=== PATIENT | female | born 1980 | race Hispanic/Latino ===

== ENCOUNTER 2016-11-26 | Emergency (ER) | payer SELFPAY ==
[2016-11-26 00:31] VITALS: BP 107/70
[2016-11-26 00:55] LABS: Bacteria,Urine 1+ /HPF (Negative); Bilirubin,Urine NEG (Negative); Blood,Urine NEG (Negative); Ketones,Urine NEG (Negative); Leukocyte Esterase,Urine NEG (Negative); Mucus,Urine FEW /HPF; Nitrite,Urine NEG (Negative); Protein,Urine <15 mg/dL mg/dL (Negative)
--- NOTE | 2016-11-26 05:37 | Emergency Department Report ---
ED General Adult HPI - General Chief complaint: Wound/Laceration Stated complaint: CUTS TO ARM Time Seen by Provider: 11/26/16 04:46 Source: patient, family Mode of arrival: Ambulatory Limitations: No Limitations - History of Present Illness Initial comments: Patient reports that she cut right forearm and left forearm and broken glass today. She said it was accidental. Denies any bleeding at present. She said this happened this morning. Patient also complains of cold symptoms were runny nose and congestion and also complaining in a few urinary frequency. Denies any increased thirst or hunger. Denies any fever or chills. She reports that she has some abdominal cramping but she is not having any cramping now this happen this morning denies any vaginal bleeding or discharge. Last menstrual period was 11/26/2016 denies any fever or chills. Patient shows she is having lower back pain and she said she has back pain from where she had injured her back in the past. Patient has been here several visits for multiple issues to include pain management. She said she got her tetanus vaccination less than 5 years ago. Denies any numbness or tingling to extremities. Denies any loss of bowel or bladder function. Denies any urinary burning. Patient denies injuries to her arms was self-inflicted MD Complaint: multiple complaintsmultiple complaints Onset/Timin -: days(s) Location: back, abdomen, left, right, upper extremity Radiation: non-radiation Severity scale (0 -10): 9 Quality: aching Consistency: intermittent Improves with: rest Worsens with: movement Associated Symptoms: other (all symptoms and urinary frequency, back pain, cut forearms). denies: confusion, chest pain, cough, diaphoresis, fever/chills, headaches, loss of appetite, malaise, nausea/vomiting, rash, seizure, shortness of breath, syncope, weakness Treatments Prior to Arrival: none - Related Data Home Medications Medication Instructions Recorded Confirmed Last Taken Carisoprodol [Soma] 350 mg PO PRN PRN 08/27/13 05/06/14 01/04/14 ALPRAZolam [Xanax TAB] 1 mg PO BID PRN 01/05/14 05/06/14 01/04/14 Previous Rx's Medication Instructions Recorded Last Taken Type HYDROcodone/APAP 10-325 [[place] 1 each PO Q6HR PRN #20 tablet 08/27/13 04/29/14 Rx 10-325 mg TAB] Ferrous Sulfate [Feosol 325 MG tab] 325 mg PO BID #30 tablet 05/07/14 Unknown Rx Multivitamin [Animal Shapes] 1 each PO DAILY #30 tab.chew 05/07/14 Unknown Rx oxyCODONE /ACETAMINOPHEN [Percocet 1 tab PO Q6HR PRN #30 tablet 05/07/14 Unknown Rx 5/325] Acetaminophen/Codeine [Tylenol #3] 1 tab PO Q6H PRN #15 tab 03/31/15 Unknown Rx Sulfamethoxazole/Trimethoprim 1 each PO BID #14 tablet 03/31/15 Unknown Rx [Bactrim DS TAB] Cephalexin [Keflex] 500 mg PO Q8HR #15 cap 11/26/16 Unknown Rx Ibuprofen [Advil 100 MG tab] 600 mg PO Q6H PRN #12 tablet 11/26/16 Unknown Rx Allergies Allergy/AdvReac Type Severity Reaction Status Date / Time No Known Allergies Allergy Verified 01/05/14 22:35 ED Review of Systems ROS: Stated complaint: CUTS TO ARM Other details as noted in HPI Comment: All other systems reviewed and negative Constitutional: no symptoms reported Eyes: denies: eye pain ENT: congestion. denies: ear pain, throat pain, dental pain Respiratory: no symptoms reported Cardiovascular: denies: chest pain, palpitations, edema, syncope Endocrine: increased urine. denies: excessive sweating, flushing, intolerance to cold, intolerance to heat, increased hunger, increased thirst, unexplained weight gain, unexplained weight loss Gastrointestinal: abdominal pain (this morning but none now). denies: nausea, vomiting, diarrhea, constipation, hematemesis, melena, hematochezia Genitourinary: frequency. denies: urgency, dysuria, hematuria, discharge, abnormal menses, dyspareunia Musculoskeletal: back pain, arthralgia. denies: joint swelling, myalgia Skin: other (cut forearms) Neurological: denies: headache, weakness, numbness, paresthesias, confusion, abnormal gait, vertigo ED Past Medical Hx - Past Medical History Previous Medical History?: Yes Hx Hypertension: No Hx Congestive Heart Failure: No Hx Diabetes: No Hx Deep Vein Thrombosis: No Hx Renal Disease: No Hx Sickle Cell Disease: No Hx Seizures: No (migranes) Hx Kidney Stones: Yes Hx Psychiatric Treatment: Yes (ANXIETY) Hx Asthma: No Hx COPD: No Hx HIV: No - Surgical History Past Surgical History?: Yes Hx Cholecystectomy: Yes Additional Surgical History: - Family History Family history: no significant - Social History Smoking Status: Current Every Day Smoker Substance Use Type: None Other Social History: She says she is and lives with her family - Medications Home Medications: Home Medications Medication Instructions Recorded Confirmed Last Taken Type Carisoprodol [Soma] 350 mg PO PRN PRN 08/27/13 05/06/14 01/04/14 History HYDROcodone/APAP 10-325 [[place] 1 each PO Q6HR PRN #20 tablet 08/27/13 05/06/14 04/29/14 Rx 10-325 mg TAB] ALPRAZolam [Xanax TAB] 1 mg PO BID PRN 01/05/14 05/06/14 01/04/14 History Ferrous Sulfate [Feosol 325 MG tab] 325 mg PO BID #30 tablet 05/07/14 Unknown Rx Multivitamin [Animal Shapes] 1 each PO DAILY #30 tab.chew 05/07/14 Unknown Rx oxyCODONE /ACETAMINOPHEN [Percocet 1 tab PO Q6HR PRN #30 tablet 05/07/14 Unknown Rx 5/325] Acetaminophen/Codeine [Tylenol #3] 1 tab PO Q6H PRN #15 tab 03/31/15 Unknown Rx Sulfamethoxazole/Trimethoprim 1 each PO BID #14 tablet 03/31/15 Unknown Rx [Bactrim DS TAB] Cephalexin [Keflex] 500 mg PO Q8HR #15 cap 11/26/16 Unknown Rx Ibuprofen [Advil 100 MG tab] 600 mg PO Q6H PRN #12 tablet 11/26/16 Unknown Rx ED Physical Exam - General Limitations: No Limitations General appearance: in no apparent distress - Head Head exam: Present: atraumatic, normocephalic, normal inspection - Eye Eye exam: Present: normal appearance, PERRL, EOMI - ENT ENT exam: Present: normal exam, normal orophraynx, mucous membranes moist, TM's normal bilaterally, normal external ear exam - Respiratory Respiratory exam: Present: normal lung sounds bilaterally. Absent: respiratory distress, wheezes, rales, rhonchi, stridor, chest wall tenderness - Skin Skin exam: Present: warm, dry, normal color, erythema, other ( patient with superficial scratches to RFA and 1 scratch to lfa) ED Course Vital Signs 11/26/16 00:25 Temperature 99.1 F Pulse Rate 91 H Respiratory 18 Rate Blood Pressure 107/70 O2 Sat by Pulse 96 Oximetry - Reevaluation(s) Reevaluation #1: 11/26/16 06:00 Patient potassium was mildly decreased and she was repleted with potassium 40 mEq and instructed to eat more bananas to keep her potassium levels up. She was given [place] 5/325 2 tablets in emergency room for pain which she said her pain is better. Reevaluation #2: 11/26/16 06:57 Given the 5/325 2 tablets by mouth in emergency room for complaining of pain to lower back. Scratch erik to wound on forearms cleansed with saline and neosporin ointment placed the site. KDUR 40 mEq in emergency room for mild hypokalemia. Urine was showing that she has greater than 500 glucose in her urine and is here for urinary frequency but she says she does not have Diabetes. Pedis the glucose 96 and glucose from chemistry is 94. ED Medical Decision Making - Lab Data Result diagrams: 11/26/16 05:57 11/26/16 05:57 Lab Results 11/26/16 11/26/16 11/26/16 Range/Units 00:35 05:57 05:57 WBC 8.4 (4.5-11.0) K/mm3 RBC 4.02 (3.65-5.03) M/mm3 Hgb 11.6 (10.1-14.3) gm/dl Hct 34.4 (30.3-42.9) % MCV 86 (79-97) fl MCH 29 (28-32) pg MCHC 34 (30-34) % RDW 13.1 L (13.2-15.2) % Plt Count 156 (140-440) K/mm3 Lymph % (Auto) 34.2 (13.4-35.0) % [place] % (Auto) 8.7 H (0.0-7.3) % Eos % (Auto) 0.8 (0.0-4.3) % Baso % (Auto) 0.5 (0.0-1.8) % Lymph # 2.9 (1.2-5.4) K/mm3 [place] # 0.7 (0.0-0.8) K/mm3 Eos # 0.1 (0.0-0.4) K/mm3 Baso # 0.0 (0.0-0.1) K/mm3 Seg Neutrophils % 55.8 (40.0-70.0) % Seg Neutrophils # 4.7 (1.8-7.7) K/mm3 Sodium 138 (137-145) mmol/L Potassium 3.4 L (3.6-5.0) mmol/L Chloride 102.4 (98-107) mmol/L Carbon Dioxide 23 (22-30) mmol/L Anion Gap 16 mmol/L BUN 12 (7-17) mg/dL Creatinine 0.5 L (0.7-1.2) mg/dL Estimated GFR > 60 ml/min BUN/Creatinine Ratio 24.00 % Glucose 94 (65-100) mg/dL Calcium 8.7 (8.4-10.2) mg/dL Total Bilirubin < 0.20 (0.1-1.2) mg/dL Direct Bilirubin < 0.2 (0-0.2) mg/dL Indirect Bilirubin 0.0 mg/dL AST 8 (5-40) units/L ALT 7 (7-56) units/L Alkaline Phosphatase 66 (35-129) units/L Total Protein 5.9 L (6.3-8.2) g/dL Albumin 3.7 L (3.9-5) g/dL Albumin/Globulin Ratio 1.7 % Urine Color (Yellow) Urine Turbidity (Clear) Urine pH (5.0-7.0) Ur Specific [place] (1.003-1.030) Urine Protein (Negative) mg/dL Urine Glucose (UA) (Negative) mg/dL Urine Ketones (Negative) mg/dL Urine Blood (Negative) Urine Nitrite (Negative) Urine Bilirubin (Negative) Urine Urobilinogen (<2.0) mg/dL Ur Leukocyte Esterase (Negative) Urine WBC (Auto) (0.0-6.0) /HPF Urine RBC (Auto) (0.0-6.0) /HPF U Epithel Cells (Auto) (0-13.0) /HPF Urine Bacteria (Auto) (Negative) /HPF Urine Mucus /HPF Urine HCG, Qual Negative (Negative) 09/05/17 Range/Units Unknown WBC (4.5-11.0) K/mm3 RBC (3.65-5.03) M/mm3 Hgb (10.1-14.3) gm/dl Hct (30.3-42.9) % MCV (79-97) fl MCH (28-32) pg MCHC (30-34) % RDW (13.2-15.2) % Plt Count (140-440) K/mm3 Lymph % (Auto) (13.4-35.0) % [place] % (Auto) (0.0-7.3) % Eos % (Auto) (0.0-4.3) % Baso % (Auto) (0.0-1.8) % Lymph # (1.2-5.4) K/mm3 [place] # (0.0-0.8) K/mm3 Eos # (0.0-0.4) K/mm3 Baso # (0.0-0.1) K/mm3 Seg Neutrophils % (40.0-70.0) % Seg Neutrophils # (1.8-7.7) K/mm3 Sodium (137-145) mmol/L Potassium (3.6-5.0) mmol/L Chloride (98-107) mmol/L Carbon Dioxide (22-30) mmol/L Anion Gap mmol/L BUN (7-17) mg/dL Creatinine (0.7-1.2) mg/dL Estimated GFR ml/min BUN/Creatinine Ratio % Glucose (65-100) mg/dL Calcium (8.4-10.2) mg/dL Total Bilirubin (0.1-1.2) mg/dL Direct Bilirubin (0-0.2) mg/dL Indirect Bilirubin mg/dL AST (5-40) units/L ALT (7-56) units/L Alkaline Phosphatase (35-129) units/L Total Protein (6.3-8.2) g/dL Albumin (3.9-5) g/dL Albumin/Globulin Ratio % Urine Color Yellow (Yellow) Urine Turbidity Clear (Clear) Urine pH 5.0 (5.0-7.0) Ur Specific [place] 1.029 (1.003-1.030) Urine Protein <15 mg/dl (Negative) mg/dL Urine Glucose (UA) >=500 (Negative) mg/dL Urine Ketones Neg (Negative) mg/dL Urine Blood Neg (Negative) Urine Nitrite Neg (Negative) Urine Bilirubin Neg (Negative) Urine Urobilinogen 2.0 (<2.0) mg/dL Ur Leukocyte Esterase Neg (Negative) Urine WBC (Auto) 1.0 (0.0-6.0) /HPF Urine RBC (Auto) 1.0 (0.0-6.0) /HPF U Epithel Cells (Auto) < 1.0 (0-13.0) /HPF Urine Bacteria (Auto) 1+ (Negative) /HPF Urine Mucus Few /HPF Urine HCG, Qual (Negative) - Medical Decision Making ED Course ED course: She presented emergency room with her family member with complaints of urinary frequency, exacerbation of chronic back pain and she said that she accidentally cut her forearms on broken glass. Tetanus vaccine booster 0.5 mL updated. Patient and found to have superficial scratches to right forearm and one scratch erik to left forearm. Her neurological and back exam is normal. Patient able to ambulate in the hallway without any difficulties. She was given [place] 5/325 mg 2 tablets emergency room for pain which relieved her pain. Bilateral forearm scratches cleansed with normal saline and Neosporin ointment placed the fight. Urinalysis negative for urinary tract infection but she had greater than 500 glucose in her urine and less than 15% protein. H&P OC fingerstick 96 and chemistry with glucose of 94. She had mild hypokalemia and was given K-Dur 40 mEq in emergency room and was told to increase her potassium in her diet.CBC stable. Discharged home with prescription for keflex for scratch clay and motrin for pain. Patient does not have a primary care doctor so I told her that she needs to follow up at [facility] for primary care visit. She was understands discharge diagnosis and treatment plan discharge home with her family in stable condition Critical care attestation.: If time is entered above; I have spent that time in minutes in the direct care of this critically ill patient, excluding procedure time. ED Disposition Clinical Impression: Acute exacerbation of chronic low back pain, Hypokalemia Scratch of forearm Qualifiers: Encounter type: initial encounter Laterality: unspecified laterality Qualified Code(s): S50.819A - Abrasion of unspecified forearm, initial encounter Disposition: DC-01 TO HOME OR SELFCARE Is pt being admited?: No Condition: Critical Instructions: Hypokalemia (ED), Abrasion (ED), Back Pain (ED) Additional Instructions: Follow-up at [facility] for further evaluation and treatment of multiple problems. You are already on medication at home for pain so you can continue to take these These keep affected areas both forearms clean and dry Take antibiotic as prescribed Prescriptions: Cephalexin [Keflex] 500 mg PO Q8HR #15 cap Ibuprofen [Advil 100 MG tab] 600 mg PO Q6H PRN #12 tablet PRN Reason: Pain Referrals: [facility] [Outside] - 2-3 Days Forms: Accompanied Note
[2016-11-26] MEDS ORDERED: NORCO 5/325 PO ONE (05:39)
[2016-11-26] MEDS ORDERED: TRIPLE ANTIBIOTIC TP ONE (05:39)
[2016-11-26 06:12] LABS: Basophils % (Auto) 0.5 % (0.0-1.8); Eosinophils % (Auto) 0.8 % (0.0-4.3); Hematocrit 34.4 % (30.3-42.9); Hemoglobin 11.6 gm/dl (10.1-14.3); Mean Corpuscular HGB Conc 34 % (30-34); Mean Corpuscular Hemoglobin 29 pg (28-32); Mean Corpuscular Volume 86 fl (79-97); Platelet Count 156 K/mm3 (140-440); Red Blood Count 4.02 M/mm3 (3.65-5.03); Red Cell Distribution Width 13.1 % (13.2-15.2); White Blood Count 8.4 K/mm3 (4.5-11.0)
[2016-11-26 06:40] LABS: Alanine Aminotransferase 7 units/L (7-56); Albumin 3.7 g/dL (3.9-5); Albumin/Globulin Ratio 1.7 %; Alkaline Phosphatase 66 units/L (35-129); Anion Gap 16 mmol/L; Bilirubin,Total < 0.20 mg/dL (0.1-1.2); Blood Urea Nitrogen 12 mg/dL (7-17); Calcium 8.7 mg/dL (8.4-10.2); Carbon Dioxide 23 mmol/L (22-30); Chloride 102.4 mmol/L (98-107); Glucose 94 mg/dL (65-100); Potassium 3.4 mmol/L (3.6-5.0); Sodium 138 mmol/L (137-145); Total Protein 5.9 g/dL (6.3-8.2)
[2016-11-26 06:41] LABS: Bilirubin,Direct < 0.2 mg/dL (0-0.2)
[2016-11-26] MEDS ORDERED: K-DUR PO ONE (06:48)
[2016-11-26] MEDS ORDERED: ZITHROMAX ONE (07:29)
== END 2016-11-26 07:19 | disposition home or self-care (01) ==
LOC: ED
DX: G89.29 Other chronic pain (principal); M54.5 Low back pain; E87.6 Hypokalemia; S50.812A Abrasion of left forearm, initial encounter; S50.811A Abrasion of right forearm, initial encounter; F17.210 Nicotine dependence, cigarettes, uncomplicated; W25.XXXA Contact with sharp glass, initial encounter; Y93.89 Activity, other specified; Y92.89 Other specified places as the place of occurrence of the external cause; Y99.8 Other external cause status
CPT/HCPCS: 36415; 80048; 80074; 81001; 81025; 82962; 85025; 99283; A6250

== ENCOUNTER 2017-09-26 09:08 | Emergency (ER) | payer SELFPAY ==
[2017-09-26 09:16] VITALS: BP 181/99
[2017-09-26] MEDS ORDERED: ZOFRAN IV ONE (10:06)
[2017-09-26] MEDS ORDERED: TORADOL IV ONE (10:06)
[2017-09-26] MEDS ORDERED: PEPCID IV ONE (10:06)
[2017-09-26] MEDS ORDERED: BENTYL IM ONE (10:06)
--- NOTE | 2017-09-26 10:08 | Emergency Department Report ---
Blank Doc - Documentation Documentation: Patient is a 37-year-old female who is presenting with 1 week of nausea vomiting. Patient also states she has some epigastric discomfort as well. Patient states the pain is a 10 out of 10 in severity. Patient has a history of pancreatitis and states this feels similar. Patient denies any fevers chills cough cold congestion at this time. Patient is coming in requesting IV pain meds. On brief physical exam the patient has some mild epigastric tenderness on palpation but no rebound or guarding. The patient is mildly tachycardic. Patient will be sent to the treatment room to check labs to rule out electrolyte abnormalities also received IV fluids administered symptomatic relief.
[2017-09-26 10:09] LABS: Bacteria,Urine 4+ /HPF (Negative); Bilirubin,Urine NEG (Negative); Blood,Urine LG (Negative); Color,Urine Amber (Yellow); Mucus,Urine 3+ /HPF
[2017-09-26 10:11] LABS: HCG Qualitative,Urine Negative (Negative)
[2017-09-26 10:26] LABS: Basophils % (Auto) 0.3 % (0.0-1.8); Eosinophils # (Auto) 0.1 K/mm3 (0.0-0.4); Eosinophils % (Auto) 1.1 % (0.0-4.3); Hematocrit 45.7 % (30.3-42.9); Hemoglobin 15.3 gm/dl (10.1-14.3); Lymphocytes # (Auto) 3.1 K/mm3 (1.2-5.4); Lymphocytes % (Auto) 34.9 % (13.4-35.0); Mean Corpuscular HGB Conc 34 % (30-34); Mean Corpuscular Hemoglobin 27 pg (28-32); Mean Corpuscular Volume 81 fl (79-97); Monocytes # (Auto) 0.7 K/mm3 (0.0-0.8); Monocytes % (Auto) 8.1 % (0.0-7.3); Platelet Count 279 K/mm3 (140-440); Red Blood Count 5.68 M/mm3 (3.65-5.03); Red Cell Distribution Width 13.8 % (13.2-15.2)
[2017-09-26 10:47] LABS: Alanine Aminotransferase 32 units/L (7-56); Albumin 4.3 g/dL (3.9-5); BUN/Creatinine Ratio 19; Blood Urea Nitrogen 13 mg/dL (7-17); Calcium 9.7 mg/dL (8.4-10.2); Hemolysis Index 9; Lipase 29 units/L (13-60)
[2017-09-26] MEDS ORDERED: KCL 10MEQ/100ML 10 MEQ/100 ML BAG IV ONE ×2 (10:55→11:21)
[2017-09-26] MEDS ORDERED: K-DUR PO ONE ×2 (10:55→11:21)
[2017-09-26] MEDS ORDERED: NACL 0.9% 1000 ML 1,000 ML IV ONE ×2 (11:20→11:21)
[2017-09-26] MEDS ORDERED: NACL 0.9% 250ML 250 ML ONE (11:21)
[2017-09-26] MEDS ORDERED: NACL 0.9% 1000 ML 1,000 ML ONE (11:22)
--- NOTE | 2017-09-26 11:47 | Emergency Department Report ---
ED N/V/D HPI - General Chief complaint: Abdominal Pain Stated complaint: NAUSEA/VOMITING Time Seen by Provider: 09/26/17 10:02 Source: patient Mode of arrival: Ambulatory Limitations: No Limitations - History of Present Illness Initial comments: Patient is a 37-year-old female who is presenting with 1 week of nausea vomiting. Patient also states she has some epigastric discomfort as well. Patient states the pain is a 10 out of 10 in severity. Patient has a history of pancreatitis and states this feels similar. Patient denies any fevers chills cough cold congestion at this time. Patient is coming in requesting IV pain meds. Location: epigastric Pain Scale: 8 Quality: cramping Consistency: constant - Related Data Home Medications Medication Instructions Recorded Confirmed Last Taken Carisoprodol [Soma] 350 mg PO PRN PRN 08/27/13 05/06/14 01/04/14 ALPRAZolam [Xanax TAB] 1 mg PO BID PRN 01/05/14 05/06/14 01/04/14 Previous Rx's Medication Instructions Recorded Last Taken Type HYDROcodone/APAP 10-325 [[place] 1 each PO Q6HR PRN #20 tablet 08/27/13 04/29/14 Rx 10-325 mg TAB] Ferrous Sulfate [Feosol 325 MG tab] 325 mg PO BID #30 tablet 05/07/14 Unknown Rx Multivitamin [Animal Shapes] 1 each PO DAILY #30 tab.chew 05/07/14 Unknown Rx oxyCODONE /ACETAMINOPHEN [Percocet 1 tab PO Q6HR PRN #30 tablet 05/07/14 Unknown Rx 5/325] Acetaminophen/Codeine [Tylenol #3] 1 tab PO Q6H PRN #15 tab 03/31/15 Unknown Rx Sulfamethoxazole/Trimethoprim 1 each PO BID #14 tablet 03/31/15 Unknown Rx [Bactrim DS TAB] Cephalexin [Keflex] 500 mg PO Q8HR #15 cap 11/26/16 Unknown Rx Ibuprofen [Advil 100 MG tab] 600 mg PO Q6H PRN #12 tablet 11/26/16 Unknown Rx Dicyclomine [Bentyl] 10 mg PO QID #15 capsule 09/26/17 Unknown Rx Nitrofurantoin Monohyd/M-Cryst 100 mg PO BID #14 capsule 09/26/17 Unknown Rx [Macrobid 100 mg Capsule] Ondansetron [Zofran Odt] 4 mg PO Q8HR PRN #10 tab.rapdis 09/26/17 Unknown Rx Potassium Chloride [K-Dur] 10 meq PO QDAY #7 tablet 09/26/17 Unknown Rx Allergies Allergy/AdvReac Type Severity Reaction Status Date / Time No Known Allergies Allergy Verified 09/26/17 09:13 ED Review of Systems ROS: Stated complaint: NAUSEA/VOMITING Other details as noted in HPI Comment: All other systems reviewed and negative ED Past Medical Hx - Past Medical History Previous Medical History?: Yes Hx Hypertension: No Hx Congestive Heart Failure: No Hx Diabetes: No Hx Deep Vein Thrombosis: No Hx Renal Disease: No Hx Sickle Cell Disease: No Hx Seizures: No (migranes) Hx Kidney Stones: Yes Hx Psychiatric Treatment: Yes (ANXIETY) Hx Asthma: No Hx COPD: No Hx HIV: No Additional medical history: PANCREAS - Surgical History Hx Cholecystectomy: Yes Additional Surgical History: / - Social History Smoking Status: Current Every Day Smoker Substance Use Type: Alcohol, Marijuana - Medications Home Medications: Home Medications Medication Instructions Recorded Confirmed Last Taken Type Carisoprodol [Soma] 350 mg PO PRN PRN 08/27/13 05/06/14 01/04/14 History HYDROcodone/APAP 10-325 [[place] 1 each PO Q6HR PRN #20 tablet 08/27/13 05/06/14 04/29/14 Rx 10-325 mg TAB] ALPRAZolam [Xanax TAB] 1 mg PO BID PRN 01/05/14 05/06/14 01/04/14 History Ferrous Sulfate [Feosol 325 MG tab] 325 mg PO BID #30 tablet 05/07/14 Unknown Rx Multivitamin [Animal Shapes] 1 each PO DAILY #30 tab.chew 05/07/14 Unknown Rx oxyCODONE /ACETAMINOPHEN [Percocet 1 tab PO Q6HR PRN #30 tablet 05/07/14 Unknown Rx 5/325] Acetaminophen/Codeine [Tylenol #3] 1 tab PO Q6H PRN #15 tab 03/31/15 Unknown Rx Sulfamethoxazole/Trimethoprim 1 each PO BID #14 tablet 03/31/15 Unknown Rx [Bactrim DS TAB] Cephalexin [Keflex] 500 mg PO Q8HR #15 cap 11/26/16 Unknown Rx Ibuprofen [Advil 100 MG tab] 600 mg PO Q6H PRN #12 tablet 11/26/16 Unknown Rx Dicyclomine [Bentyl] 10 mg PO QID #15 capsule 09/26/17 Unknown Rx Nitrofurantoin Monohyd/M-Cryst 100 mg PO BID #14 capsule 09/26/17 Unknown Rx [Macrobid 100 mg Capsule] Ondansetron [Zofran Odt] 4 mg PO Q8HR PRN #10 tab.rapdis 09/26/17 Unknown Rx Potassium Chloride [K-Dur] 10 meq PO QDAY #7 tablet 09/26/17 Unknown Rx ED Physical Exam - General Limitations: No Limitations General appearance: alert, in no apparent distress - Head Head exam: Present: atraumatic, normocephalic - Eye Eye exam: Present: normal appearance - ENT ENT exam: Present: mucous membranes moist, other (poor dentition) - Neck Neck exam: Present: normal inspection - Respiratory Respiratory exam: Present: normal lung sounds bilaterally. Absent: respiratory distress - Cardiovascular Cardiovascular Exam: Present: regular rate, normal rhythm. Absent: systolic murmur, diastolic murmur, rubs, gallop - GI/Abdominal GI/Abdominal exam: Present: soft, tenderness (mild tenderness to the epigastrium ), normal bowel sounds. Absent: distended, guarding, rebound, rigid - Extremities Exam Extremities exam: Present: normal inspection - Back Exam Back exam: Present: normal inspection - Neurological Exam Neurological exam: Present: alert, oriented X3 - Psychiatric Psychiatric exam: Present: normal affect, normal mood - Skin Skin exam: Present: warm, dry, intact, normal color. Absent: rash ED Course Vital Signs 09/26/17 09/26/17 09:14 11:00 Temperature 97.8 F Pulse Rate 115 H Respiratory 18 16 Rate Blood Pressure 181/99 O2 Sat by Pulse 100 Oximetry ED Medical Decision Making - Lab Data Result diagrams: 09/26/17 10:15 09/26/17 10:15 Lab Results 09/26/17 09/26/17 09/26/17 Range/Units 09:41 10:15 10:15 WBC 8.8 (4.5-11.0) K/mm3 RBC 5.68 H (3.65-5.03) M/mm3 Hgb 15.3 H (10.1-14.3) gm/dl Hct 45.7 H (30.3-42.9) % MCV 81 (79-97) fl MCH 27 L (28-32) pg MCHC 34 (30-34) % RDW 13.8 (13.2-15.2) % Plt Count 279 (140-440) K/mm3 Lymph % (Auto) 34.9 (13.4-35.0) % [place] % (Auto) 8.1 H (0.0-7.3) % Eos % (Auto) 1.1 (0.0-4.3) % Baso % (Auto) 0.3 (0.0-1.8) % Lymph # 3.1 (1.2-5.4) K/mm3 [place] # 0.7 (0.0-0.8) K/mm3 Eos # 0.1 (0.0-0.4) K/mm3 Baso # 0.0 (0.0-0.1) K/mm3 Seg Neutrophils % 55.6 (40.0-70.0) % Seg Neutrophils # 4.9 (1.8-7.7) K/mm3 Sodium 137 (137-145) mmol/L Potassium 2.8 L* (3.6-5.0) mmol/L Chloride 92.5 L (98-107) mmol/L Carbon Dioxide 29 (22-30) mmol/L Anion Gap 18 mmol/L BUN 13 (7-17) mg/dL Creatinine 0.7 (0.7-1.2) mg/dL Estimated GFR > 60 ml/min BUN/Creatinine Ratio 19 % Glucose 111 H (65-100) mg/dL Calcium 9.7 (8.4-10.2) mg/dL Total Bilirubin 0.60 (0.1-1.2) mg/dL AST 24 (5-40) units/L ALT 32 (7-56) units/L Alkaline Phosphatase 96 (35-129) units/L Total Protein 7.5 (6.3-8.2) g/dL Albumin 4.3 (3.9-5) g/dL Albumin/Globulin Ratio 1.3 % Lipase 29 (13-60) units/L Urine Color [place] (Yellow) Urine Turbidity Clear (Clear) Urine pH 6.0 (5.0-7.0) Ur Specific [place] 1.020 (1.003-1.030) Urine Protein 100 mg/dl (Negative) mg/dL Urine Glucose (UA) Neg (Negative) mg/dL Urine Ketones Neg (Negative) mg/dL Urine Blood Lg (Negative) Urine Nitrite Pos (Negative) Urine Bilirubin Neg (Negative) Urine Urobilinogen 4.0 (<2.0) mg/dL Ur Leukocyte Esterase Lg (Negative) Urine WBC (Auto) 24.0 H (0.0-6.0) /HPF Urine RBC (Auto) 10.0 (0.0-6.0) /HPF U Epithel Cells (Auto) 24.0 H (0-13.0) /HPF Urine Bacteria (Auto) 4+ (Negative) /HPF Urine Mucus 3+ /HPF Urine HCG, Qual Negative (Negative) - Medical Decision Making Patient is a 37-year-old female is presenting with nausea vomiting epigastric discomfort. Patient's laboratory studies all within normal limits except for low potassium. Patient also has mild urinary tract infection as well. Patient very adamant that she receive narcotics IV and not by mouth. Patient was given multiple medications Effexor treat her problems including Pepcid IV Zofran and IV fluids. Her potassium was also replaced. Patient refused oral potassium. The patient also states that she plans on not taking the antibiotics by mouth as well. Patient is not actively vomited here in emergency department. Patient's while the IV fluids and IV potassium for a few as a stated that "I can go home and being in pain". Patient is exhibiting drug- seeking behavior. Patient will sign out AGAINST MEDICAL ADVICE so she is not receiving the totality of the treatment has been offered. Critical care attestation.: If time is entered above; I have spent that time in minutes in the direct care of this critically ill patient, excluding procedure time. ED Disposition Clinical Impression: Hypokalemia, Abdominal pain in female patient Gastritis Qualifiers: Gastritis type: superficial Chronicity: acute Gastritis bleeding: without bleeding Qualified Code(s): K29.00 - Acute gastritis without bleeding UTI (urinary tract infection) Qualifiers: Urinary tract infection type: acute cystitis Disposition: LEFT AGAINST MED ADVICE Is pt being admited?: No Does the pt Need Aspirin: No Condition: Stable Instructions: Abdominal Pain (ED) Referrals: PRIMARY CARE, [Primary Care Provider] - 3-5 Days
== END 2017-09-26 11:57 | disposition left against medical advice (07) ==
LOC: ED 09:08
DX: K29.00 Acute gastritis without bleeding (principal); N30.00 Acute cystitis without hematuria; E87.6 Hypokalemia; F41.9 Anxiety disorder, unspecified; F17.200 Nicotine dependence, unspecified, uncomplicated; F12.90 Cannabis use, unspecified, uncomplicated; Z90.49 Acquired absence of other specified parts of digestive tract
CPT/HCPCS: 36415; 80053; 81001; 81025; 83690; 85025; 96365; 96372; 96375; 99283; J0500; J1885; J2405; J3480; J7030; J7050

== ENCOUNTER 2020-06-09 22:21 | Emergency (ER) | payer SELFPAY ==
[2020-06-09] MEDS ORDERED: levETIRAcetam 1000 MG/NS 0.75% 1,000 MG/100 ML BAG IV ONE (22:41)
--- NOTE | 2020-06-09 22:42 | Emergency Department Report ---
ED Seizure HPI - General Stated Complaint: POSSIBLE SEIZURE Time Seen by Provider: 06/09/20 22:38 Source: patient, EMS Mode of arrival: Stretcher Limitations: No Limitations - History of Present Illness Initial Comments: Patient is a 40-year-old female presents emergency room with complaints of seizure activity. Patient is at her local rehab facility, [facility] for Xanax detox. Patient states she has had a seizure for a while. Patient states she went to the bathroom and the light was flickering which pushed her into a seizure. Patient states that she can feel her seizure coming on. Patient states she is feeling much better. Patient states she is feeling a little bit tired. Patient states she is not sure if she hit her head. Patient denies any pain. Patient states she has a history of epileptic seizures for which she is taking medications for and she is compliant with her medications. Patient denies recent travel. Patient denies recent international travel. Patient denies exposure to the novel coronavirus. Patient denies sick contacts. Patient denies fever and chills. Patient denies cough. Patient denies diarrhea. Patient denies coming in contact with anybody with symptoms of the novel coronavirus. MD Complaint: seizure -: Sudden Description of Episode: loss of consciousness, tonic-clonic movement -: second(s) Witnessed:: Yes Trauma: No Seizure History: known seizure disorder, compliant with medication Place: other Possible Precipitating Event: other (Flashing lights) Associated Symptoms: confusion, malaise. denies: chest pain, cough, diaphoresis, fever/chills, loss of appetite, rash, shortness of breath, syncope, weakness, tongue injury, shoulder dislocation Treatments Prior to Arrival: none - Related Data Home Medications Medication Instructions Recorded Confirmed Last Taken carisoprodoL [Soma] 350 mg PO PRN PRN 08/27/13 05/06/14 01/04/14 ALPRAZolam [Xanax TAB] 1 mg PO BID PRN 01/05/14 05/06/14 01/04/14 Previous Rx's Medication Instructions Recorded Last Taken Type HYDROcodone/APAP 10-325 [[place] 1 each PO Q6HR PRN #20 tablet 08/27/13 04/29/14 Rx 10-325 mg TAB] Ferrous Sulfate [Feosol 325 MG tab] 325 mg PO BID #30 tablet 05/07/14 Unknown Rx Pediatric Multivitamin No.17 1 each PO DAILY #30 tab.chew 05/07/14 Unknown Rx [Animal Shapes] oxyCODONE /ACETAMINOPHEN [Percocet 1 tab PO Q6HR PRN #30 tablet 05/07/14 Unknown Rx 5/325] Acetaminophen/Codeine [Tylenol #3] 1 tab PO Q6H PRN #15 tab 03/31/15 Unknown Rx Sulfamethoxazole/Trimethoprim 1 each PO BID #14 tablet 03/31/15 Unknown Rx [Bactrim DS TAB] Ibuprofen [Advil 100 MG tab] 600 mg PO Q6H PRN #12 tablet 11/26/16 Unknown Rx cephALEXin [Keflex] 500 mg PO Q8HR #15 cap 11/26/16 Unknown Rx Dicyclomine [Bentyl] 10 mg PO QID #15 capsule 09/26/17 Unknown Rx Nitrofurantoin Monohyd/M-Cryst 100 mg PO BID #14 capsule 09/26/17 Unknown Rx [Macrobid 100 mg Capsule] Ondansetron [Zofran Odt] 4 mg PO Q8HR PRN #10 tab.rapdis 09/26/17 Unknown Rx Potassium Chloride [K-Dur] 10 meq PO QDAY #7 tablet 09/26/17 Unknown Rx Allergies Allergy/AdvReac Type Severity Reaction Status Date / Time No Known Allergies Allergy Verified 09/26/17 09:13 ED Review of Systems ROS: Stated complaint: POSSIBLE SEIZURE Other details as noted in HPI Constitutional: see HPI, malaise. denies: chills, fever Eyes: denies: eye pain, eye discharge, vision change ENT: denies: ear pain, throat pain Respiratory: denies: cough, shortness of breath, wheezing Cardiovascular: denies: chest pain, palpitations Endocrine: no symptoms reported Gastrointestinal: denies: abdominal pain, nausea, diarrhea Genitourinary: denies: urgency, dysuria, discharge Musculoskeletal: denies: back pain, joint swelling, arthralgia Skin: denies: rash, lesions Neurological: as per HPI. denies: headache, weakness, paresthesias Psychiatric: denies: anxiety, depression Hematological/Lymphatic: denies: easy bleeding, easy bruising ED Past Medical Hx - Past Medical History Previous Medical History?: Yes Hx Hypertension: No Hx Congestive Heart Failure: No Hx Diabetes: No Hx Deep Vein Thrombosis: No Hx Renal Disease: No Hx Sickle Cell Disease: No Hx Seizures: No (migranes) Hx Kidney Stones: Yes Hx Psychiatric Treatment: Yes (ANXIETY) Hx Asthma: No Hx COPD: No Hx HIV: No Additional medical history: PANCREAS - Surgical History Past Surgical History?: Yes Hx Cholecystectomy: Yes Additional Surgical History: / - Family History Family history: no significant - Social History Smoking Status: Current Every Day Smoker Substance Use Type: Alcohol, Marijuana - Medications Home Medications: Home Medications Medication Instructions Recorded Confirmed Last Taken Type HYDROcodone/APAP 10-325 [[place] 1 each PO Q6HR PRN #20 tablet 08/27/13 05/06/14 04/29/14 Rx 10-325 mg TAB] carisoprodoL [Soma] 350 mg PO PRN PRN 08/27/13 05/06/14 01/04/14 History ALPRAZolam [Xanax TAB] 1 mg PO BID PRN 01/05/14 05/06/14 01/04/14 History Ferrous Sulfate [Feosol 325 MG tab] 325 mg PO BID #30 tablet 05/07/14 Unknown Rx Pediatric Multivitamin No.17 1 each PO DAILY #30 tab.chew 05/07/14 Unknown Rx [Animal Shapes] oxyCODONE /ACETAMINOPHEN [Percocet 1 tab PO Q6HR PRN #30 tablet 05/07/14 Unknown Rx 5/325] Acetaminophen/Codeine [Tylenol #3] 1 tab PO Q6H PRN #15 tab 03/31/15 Unknown Rx Sulfamethoxazole/Trimethoprim 1 each PO BID #14 tablet 03/31/15 Unknown Rx [Bactrim DS TAB] Ibuprofen [Advil 100 MG tab] 600 mg PO Q6H PRN #12 tablet 11/26/16 Unknown Rx cephALEXin [Keflex] 500 mg PO Q8HR #15 cap 11/26/16 Unknown Rx Dicyclomine [Bentyl] 10 mg PO QID #15 capsule 09/26/17 Unknown Rx Nitrofurantoin Monohyd/M-Cryst 100 mg PO BID #14 capsule 09/26/17 Unknown Rx [Macrobid 100 mg Capsule] Ondansetron [Zofran Odt] 4 mg PO Q8HR PRN #10 tab.rapdis 09/26/17 Unknown Rx Potassium Chloride [K-Dur] 10 meq PO QDAY #7 tablet 09/26/17 Unknown Rx ED Physical Exam - General Limitations: No Limitations General appearance: alert, in no apparent distress - Head Head exam: Present: atraumatic, normocephalic - Eye Eye exam: Present: normal appearance - ENT ENT exam: Present: mucous membranes moist - Neck Neck exam: Present: normal inspection - Respiratory Respiratory exam: Present: normal lung sounds bilaterally. Absent: respiratory distress - Cardiovascular Cardiovascular Exam: Present: regular rate, normal rhythm. Absent: systolic murmur, diastolic murmur, rubs, gallop - GI/Abdominal GI/Abdominal exam: Present: soft, normal bowel sounds - Extremities Exam Extremities exam: Present: normal inspection - Back Exam Back exam: Present: normal inspection - Neurological Exam Neurological exam: Present: alert, oriented X3 - Psychiatric Psychiatric exam: Present: normal affect, normal mood - Skin Skin exam: Present: warm, dry, intact, normal color. Absent: rash ED Course Vital Signs 06/09/20 06/09/20 22:41 23:08 Temperature 98.0 F Pulse Rate 96 H Respiratory 16 16 Rate Blood Pressure 131/87 O2 Sat by Pulse 98 Oximetry - Reevaluation(s) Reevaluation #1: Patient has had seizure activity. Patient states feeling much better. Patient received a gram of Keppra. I discussed all results and clinical findings with patient. I discussed plan of care with patient. Patient agrees with plan of care. Patient is stable for discharge. Patient will be discharged back to [facility]. Patient given discharge instructions. Patient voiced understanding of discharge instructions. 06/10/20 00:13 ED Medical Decision Making - Lab Data Result diagrams: 06/09/20 23:14 06/09/20 23:14 - Medical Decision Making Patient is a 40-year-old female who presents emergency room from a local psychiatric facility for seizure activity. Patient is currently in room 4 Xanax 3 have an overdose. Patient is on a 1013. Patient has a sitter with her. Patient has a history of seizure and had a seizure activity after she was triggered by flashing light in the bathroom at the psychiatric facility. Patient had labs done. Patient's labs were essentially unremarkable. Patient was given IV Keppra upon initial evaluation. Patient denies any history of seizure activity in the ER. Patient is stable for discharge and was discharged back to her psychiatric facility to continue her rehabilitation. Patient given discharge instructions. Patient stable for discharge. - Differential Diagnosis Seizure, seizure-like activity. Critical care attestation.: If time is entered above; I have spent that time in minutes in the direct care of this critically ill patient, excluding procedure time. ED Disposition Clinical Impression: Seizure Disposition: [id number] ANOTHER TYPE HLTHCARE Is pt being admited?: No Does the pt Need Aspirin: No Condition: Stable Additional Instructions: Patient transferred back to to continue her psychiatric care. Patient to follow-up with primary care in 2 to 3 days. Patient to follow-up with neurologist in 2 to 3 days. Patient to rest. Patient to increase water. Patient to avoid strenuous exercise or heavy lifting until cleared by primary care neurologist. Patient to avoid driving. Patient to take Tylenol or ibuprofen as needed for pain. Patient to continue all medications. Patient to return to the ER if condition worsens, changes or new symptoms arise.. Referrals: PRIMARY MD IMMANUEL [Primary Care Provider] - 2-3 Days KEAGAN MANN MD [Staff Physician] - 2-3 Days Time of Disposition: 00:12
[2020-06-09 23:59] LABS: Alanine Aminotransferase 29 units/L (7-56); Albumin 4.5 g/dL (3.9-5); Blood Urea Nitrogen 5 mg/dL (7-17); Calcium 9.2 mg/dL (8.4-10.2); Hemolysis Index 6
[2020-06-10] LABS: BUN/Creatinine Ratio 7
[2020-06-10 00:06] LABS: Basophils % (Auto) 0.4 % (0.0-1.8); Eosinophils % (Auto) 0.1 % (0.0-4.3); Hematocrit 41.1 % (30.3-42.9); Hemoglobin 14.2 gm/dl (10.1-14.3); Lymphocytes # (Auto) 1.4 K/mm3 (1.2-5.4); Mean Corpuscular HGB Conc 35 % (30-34); Mean Corpuscular Volume 87 fl (79-97); Monocytes # (Auto) 0.6 K/mm3 (0.0-0.8); Monocytes % (Auto) 7.7 % (0.0-7.3); Platelet Count 199 K/mm3 (140-440); Red Blood Count 4.72 M/mm3 (3.65-5.03); Red Cell Distribution Width 12.9 % (13.2-15.2)
[2020-06-10 01:47] VITALS: BP 118/72
== END 2020-06-10 01:46 | disposition other institution (70) ==
LOC: ED 22:21
DX: G40.909 Epilepsy, unspecified, not intractable, without status epilepticus (principal); F41.9 Anxiety disorder, unspecified; F17.200 Nicotine dependence, unspecified, uncomplicated; F12.10 Cannabis abuse, uncomplicated; Z79.899 Other long term (current) drug therapy; Z90.49 Acquired absence of other specified parts of digestive tract
CPT/HCPCS: 36415; 80053; 85025; 96374; 99284; J1953